=== PATIENT | female | born 1995 | race Hispanic/Latino ===

== ENCOUNTER 2017-10-01 18:33 | Emergency (ER) | payer MEDICAID ==
[~2017-10-01] VITALS: Ht 165.1 cm; Wt 72.7 kg
[2017-10-01 20:37] LABS: BASO # 0.1 10^3/uL (0.0-0.2); BASO % 0.8 % (0.0-1.0); EOS # 0.1 10^3/uL (0.0-0.50); EOS % 0.7 % (0.0-3.0); IMMATURE GRANULOCYTE % 0.4 % (0-0); LYMPH % 23.5 % (24.0-44.0); MEAN CORPUSCULAR HEMOGLOBIN 27.7 pg (27.0-33.0); MEAN CORPUSCULAR VOLUME 83.9 fl (80.0-96.0); MONO # 0.8 10^3/uL (0.0-0.8); MONO % 6.5 % (0.0-5.0); NEUTROPHILS # 8.8 10^3/uL (1.8-7.7); NEUTROPHILS % 68.1 % (36.0-66.0); PLATELET COUNT, AUTOMATED 331 10^3/uL (150-450); RED CELL DISTRIBUTION WIDTH 14.2 % (11.5-14.5); WHITE BLOOD COUNT 12.9 10^3/uL (4.0-10.0)
[2017-10-01 20:38] LABS: CONTROL LINE UCG INT CTR LINE PRESENT
[2017-10-01 20:42] LABS: MUCUS, URINE RFX LARGE (NEGATIVE); SQUAM EPITHELIAL CELL UR AURFX 4 /HPF (0-6)
[2017-10-01 20:58] LABS: ALBUMIN 4.1 GM/DL (3.2-5.2); ALBUMIN/GLOBULIN RATIO 1.05 (1.00-1.93); ALKALINE PHOSPHATASE 113 U/L (45-117); ALT/SGPT 23 U/L (12-78); ANION GAP 8 MEQ/L (8-16); AST/SGOT 14 U/L (7-37); BILIRUBIN,TOTAL 0.2 MG/DL (0.2-1.0); BLOOD UREA NITROGEN 9 MG/DL (7-18); CALCIUM LEVEL 8.6 MG/DL (8.5-10.1); CARBON DIOXIDE LEVEL 27 MEQ/L (21-32); CHLORIDE LEVEL 104 MEQ/L (98-107); CREATININE FOR GFR 0.47 MG/DL (0.55-1.02); GLUCOSE, FASTING 94 MG/DL (70-105); SODIUM LEVEL 139 MEQ/L (136-145)
[2017-10-01] MEDS ORDERED: BACT800T5 PO (21:11)
[2017-10-01] MEDS ORDERED: ALLE180T33 PO (21:13)
[2017-10-01 21:23] VITALS: BP 116/63
== END 2017-10-01 21:26 | disposition home or self-care (01) ==
LOC: M ED 18:33
DX: R10.9 Unspecified abdominal pain (principal); R21 Rash and other nonspecific skin eruption

== ENCOUNTER 2017-10-11 19:26 | Emergency (ER) | payer MEDICAID, OTHER ==
[~2017-10-11] VITALS: Ht 165.1 cm; Wt 72.7 kg
[~2017-10-11 19:26] MED LIST: ALLE180T33 PO; BACT800T5 PO
[2017-10-11] MEDS ORDERED: [UNRECOGNIZED DRUG - CODE] PO (19:43)
[2017-10-11] MEDS ORDERED: MEDR4PAK PO (21:36)
[2017-10-11 21:42] VITALS: BP 131/69
[2017-10-11] MEDS ORDERED: diphenhydrAMINE 25 MG CAP PO ONE (21:45)
== END 2017-10-11 21:54 | disposition home or self-care (01) ==
LOC: M ED 19:26
DX: R21 Rash and other nonspecific skin eruption (principal); T78.40XA Allergy, unspecified, initial encounter; X58.XXXA Exposure to other specified factors, initial encounter; Y92.89 Other specified places as the place of occurrence of the external cause; Y93.89 Activity, other specified; Y99.8 Other external cause status; Z79.899 Other long term (current) drug therapy; Z88.2 Allergy status to sulfonamides; Z88.8 Allergy status to other drugs, medicaments and biological substances